=== PATIENT | female | born 1995 | race Two or more races ===

== ENCOUNTER 2018-05-19 13:43 | Emergency (ER) | payer OTHER ==
[2018-05-19 14:07] VITALS: BP 95/49; PULSE 102; TEMP 98.2; BMI 16.9
--- NOTE | 2018-05-19 14:27 | PDOC ---
History of Present Illness - General Chief Complaint: Nausea/Vomiting Stated Complaint: VOMITING Time Seen by Provider: 05/19/18 14:25 History Source: Patient Exam Limitations: No Limitations - History of Present Illness Initial Comments: Pt is a 23 yo F, with no significant PMH, who is presenting with complaints of 9 -10 episodes of NBNB vomiting since she woke up this morning feeling nauseous. Pt admits to unprotected intercourse a few days before her LMP (05/10), which was normal for her in duration and bleeding. It is associated with myalgias, particularly lower cramping back pain. She admits to a mild burning in her throat, only after vomiting. Pt denies any recent travel or sick contacts and has been feeling otherwise well up to this point. There are no exacerbating or alleviating factors of the nausea/vomiting. Pt has not been able to tolerate PO food or fluid intake since vomiting started. Pt denies any fevers/chills, headache, rash, vision changes, chest pain, palpitations, SOB, abdominal pain, urinary symptoms, vaginal bleeding or discharge, diarrhea/constipation, or leg swelling. Pt admits to drinking ~2 glasses of wine last night for the holidays, with occasional social drinking. Pt denies any cigarette or drug use. Pt denies any recent travel or sick contacts. Pt home for the holidays from [place], no recent hiking or tick bites that she is aware of. 05/19/18 14:59 Past History - Travel Traveled outside of the country in the last 30 days: No Close contact w/someone who was outside of country & ill: No - Past Medical History Allergies/Adverse Reactions: Allergies Allergy/AdvReac Type Severity Reaction Status Date / Time No Known Allergies Allergy Verified 05/19/18 14:01 Home Medications: Ambulatory Orders NK [No Known Home Medication] 05/19/18 Diabetes: No GI Disorders: Yes ("irritated stomach lining") HTN: No Hypercholesterolemia: No - Surgical History Abdominal Surgery: No Cholecystectomy: No GI Surgery: No - Family Disease History Family Disease History: Other: Grandparents (none), Father (none), Mother (none) - Reproductive History LMP comment: 05/10/2018 LMP Normal: Yes Is Patient Now?: No (unknown) - Suicide/Smoking/Psychosocial Hx Smoking History: Never smoked Review of Systems - Review of Systems Able to Perform ROS?: Yes Is the patient limited Z[place]ian proficient: No Constitutional: Yes: Weight Stable. No: Chills, Diaphoresis, Fever, Loss of Appetite, Weakness HEENTM: No: Blurred Vision, Recent change in vision, Nose Congestion, Hearing Loss, Throat Pain, Throat Swelling, Difficulty Swallowing Respiratory: No: Cough, Orthopnea, Shortness of Breath Cardiac (ROS): No: Chest Pain, Edema, Irregular Heart Rate, Lightheadedness, Palpitations, Syncope, Chest Tightness ABD/GI: Yes: Nausea, Poor Appetite, Poor Fluid Intake (unable to tolerate PO intake since vomiting started.), Vomiting. No: Blood Streaked Bowels, Constipated, Diarrhea, Abdominal cramping : No: Burning, Dysuria, Discharge, Frequency, Flank Pain, Hematuria, Pain, Urgency Musculoskeletal: Yes: Back Pain (mild "back cramping"). No: Joint Pain, Joint Swelling, Muscle Pain, Muscle Weakness, Neck Pain (no neck pain or stiffness) Integumentary: No: Rash Neurological: No: Headache, Seizure, Unsteady Gait, Ataxia, Dizziness Psychiatric: No: Sleep Pattern Change, Change in Appetite Endocrine: No: Increased Urine, Change in Weight Hematologic/Lymphatic: No: Anemia, Blood Clots, Easy Bleeding, Easy Bruising All Other Systems: Reviewed and Negative *Physical Exam - Vital Signs Last Vital Signs Temp Pulse Resp BP Pulse Ox 98.2 F 102 H 18 95/49 L 100 05/19/18 14:03 05/19/18 14:03 05/19/18 14:03 05/19/18 14:03 05/19/18 14:03 - Physical Exam General Appearance: Yes: Nourished, Appropriately Dressed, Thin. No: Apparent Distress (pt sitting up comfortably, can answer all questions appropriately) HEENT: positive: EOMI, BEKAH, Normal ENT Inspection, Normal Voice, Symmetrical, TMs Normal, Pharynx Normal, Hearing Grossly Normal. negative: Scleral Icterus ( R), Scleral Icterus (L), Muffled/Hoarse voice, Pharyngeal Erythema, Tonsillar Exudate, Tonsillar Erythema, Nasal Congestion, Rhinorrhea, Sinus Tenderness, TM Bulging, TM Dull, TM Erythema, Excessive drooling Neck: positive: Trachea midline, Normal Thyroid, Supple. negative: Tender, Rigid, Stridor, Lymphadenopathy (R), Lymphadenopathy (L), Rigidity Respiratory/Chest: positive: Lungs Clear, Normal Breath Sounds. negative: Chest Tender, Respiratory Distress, Accessory Muscle Use, Crackles, Stridor, Wheezing Cardiovascular: positive: Regular Rhythm, S1, S2, Tachycardia. negative: Regular Rate, Edema, JVD, Murmur Vascular Pulses: Carotid (R): 4+, Carotid (L): 4+ Gastrointestinal/Abdominal: positive: Normal Bowel Sounds, Flat, Soft. negative : Tender, Organomegaly, Pulsatile Mass, Distended, Guarding, Rebound Rectal Exam: positive: deferred Lymphatic: negative: Adenopathy, Tenderness Musculoskeletal: positive: Normal Inspection. negative: CVA Tenderness, Vertebral Tenderness Extremity: positive: Normal Capillary Refill, Normal Inspection, Normal Range of Motion, Pelvis Stable. negative: Tender, Pedal Edema Integumentary: positive: Normal Color, Dry, Warm. 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 Licona. Pt presenting with complaints of 9-10 episodes of NBNB vomiting since she woke up this morning feeling nauseous. Pt admits to unprotected intercourse a few days before her LMP (05/10), which was normal for her in duration and bleeding. It is associated with myalgias, particularly lower cramping back pain. She admits to a mild burning in her throat, only after vomiting. Pt denies any recent travel or sick contacts and has been feeling otherwise well up to this point. There are no exacerbating or alleviating factors of the nausea/vomiting. Pt denies any fevers/chills, headache, vision changes, chest pain, palpitations, SOB, abdominal pain, urinary symptoms, vaginal bleeding or discharge, diarrhea/ constipation, or leg swelling. PE showed mild tachycardia (HR 102), mild hypotension (95/49, no baseline to compare), pt appears mildly dry (decreased skin turgor in hands). Clear oropharyngeal membranes, no tonsillar swelling/exudates. No abdominal tenderness , rebound or guarding. Heart and lung sounds clear. No CVA tenderness. Considering viral enteritis vs vs influenza. Minimal suspicion for abdominal pathology considering normal exam. Will monitor hypotension as pt receives fluids, likely hypovolemic from vomiting. Ordered work-up including CBC, CMP, serum beta-hcg, UA, urine culture. Provided 4 mg IV zofran and 1 L NS for improvement of dehydration and nausea/ vomiting. Will continue to reassess pt and monitor for symptomatic improvement. 05/19/18 14:39 CBC: WBC 17.4, 94.8% neutrophils, H/H 13.0/37.1; likely hemoconcentration with infection (no baseline H/H to compare to). Influenza negative UA: 2+ protein, 2+ ketones, 3+ blood; negative leuk esterase, 3 WBC, 5 RBC 05/19/18 15:36 Pt has received ~.5 L NS, pt states feeling better. WBC noted. Will have pt attempt PO intake before leaving the department. Repeat abdominal exam shows no abdominal tenderness, rebound, or guarding. 05/19/18 15:45 CMP generally WNL (BUN 20, likely dehydrated) Pt states feeling much better after fluids. Advised pt to continue with mild foods and plenty of fluids until she is feeling better. Advised pt to find PCP in [place], and referred pt to [facility] if she can be seen this weekend. Considering benign exam and pt improvement, pt can be discharged to home with follow-up. Pt advised to follow-up with PCP in 1-2 days. Strict return precautions provided with pt understanding. 05/19/18 16:52 *DC/Admit/Observation/Transfer Diagnosis at time of Disposition: Nausea and vomiting Qualifiers: Vomiting type: unspecified Vomiting Intractability: intractable Qualified Code( s): R11.2 - Nausea with vomiting, unspecified - Discharge Dispostion Disposition: HOME Condition at time of disposition: Improved Decision to Admit order: No - Referrals Referrals: [facility] [place] [facility] [place] [Provider Group] - Patient Instructions Printed Discharge Instructions: DI for Vomiting -- Adult Additional Instructions: You were seen in the ER today for nausea and vomiting. The results of your labs and imaging today showed a likely infection, but you improved with IV fluids and nausea medication and you were able to tolerate fluid intake in the department. Please follow-up with your primary care doctor within 1-2 days to discuss your visit and make sure your symptoms have improved. Please return to the ER if you have any worsening/development of abdominal pain, blood in your vomit or stool, development of fevers or chills, loss of consciousness, inability to tolerate food or fluids, or any other concerns. - Post Discharge Activity
[2018-05-19] MEDS ORDERED: SODIUM CHLORIDE 1,000 ML IV STA (14:37)
[2018-05-19] MEDS ORDERED: ONDANSETRON 4 MG/2 ML VIAL IVPUSH ONE (14:37)
--- NOTE | 2018-05-19 14:37 | PDOC ---
Attending Attestation - Resident Resident Name: Delaney Bernard - ED Attending Attestation I have performed the following: I have examined & evaluated the patient, The case was reviewed & discussed with the resident, I agree w/resident's findings & plan, Exceptions are as noted - HPI HPI: 05/19/18 14:46 23y F no pmhx presents with 9-10 episodes of nbnb vomiting. woke up with same, endorses burning in her throat after vomiting. pt endorses mild lower back aching. Pt notes brief episode of sharp abd pain prior to vomiting but pain resolves after fomiting. denies any fever?chills, diarhrea, dysuria, frequency. vag discharge, vag bleeding. no known sick contacts. family was at holiday dinner lsat night and as far as she knows everyone else was fine. no other travel. +LMP in 05/10, +unprotected sex GENERAL: The patient is awake, alert, and fully oriented, Nontoxic - in no acute distress. HEAD: Normocephalic, atraumatic. EYES: extraocular movements intact, sclera anicteric, conjunctiva clear. ENT: Normal voice, dry mucous membranes. NECK: Normal range of motion, supple LUNGS: Breath sounds equal, clear to auscultation bilaterally. No wheezes, no rhonchi, no rales. HEART: Regular rate and rhythm, normal S1 and S2 without murmur, rub or gallop. ABDOMEN: Soft, nontender,. No guarding, no rebound. No CVA tenderness BACK: No focal midline tenderness, no CVA tenderness, no fluctuance, erythema, induration EXTREMITIES: Normal range of motion, no edema. No clubbing or cyanosis. No cords, erythema, or tenderness. NEUROLOGICAL: No facial assymetry, Normal speech, PSYCH: Normal mood, normal affect. SKIN: Warm, Dry, normal turgor, suspect early gastroenteritis vs , will ck lbs will treat sx with zofran, fluids will ck UA, hcg will erassess - Physicial Exam PE: 05/19/18 16:59 see above - Medical Decision Making 05/19/18 16:58 labs rviewed noted for leukocotysis possible contractionary BUN elev UA suggestive of dehydration/starvation (+ketonuria) pt has not eaten/drank anything since yesterday abd reassessed multiple times and is soft nontender pt PO challenged, tolerated oral intake will dc with pmd fu returnp recautions were discussed
[2018-05-19] MEDS ORDERED: ONDANSETRON 4 MG/2 ML VIAL ONE (14:45)
[2018-05-19 15:16] LABS: BASO % 0.1 % (0-2.0); HEMATOCRIT 37.1 % (32.4-45.2); LYMPH % 2.5 % (8-40); MCH 32.6 pg (25.7-33.7); MCHC 34.9 g/dl (32.0-36.0); MEAN CELL VOLUME 93.2 fl (80-96); MEAN PLT VOLUME 8.2 fl (7.5-11.1); MONO % 2.6 % (3.8-10.2); NEUT % 94.8 % (42.8-82.8); PLATELET COUNT 255 K/MM3 (134-434); RBC 3.98 M/mm3 (3.60-5.2); RDW 12.5 % (11.6-15.6); WHITE BLOOD COUNT 17.4 K/mm3 (4.0-10.0)
[2018-05-19 15:17] LABS: URINE APPEARANCE SLCLOUDY; URINE BILIRUBIN NEGATIVE (<2.0 mg/dL); URINE COLOR YELLOW; URINE GLUCOSE (UA) NEGATIVE (NEGATIVE); URINE KETONE 2+ (NEGATIVE); URINE LEUK ESTERASE NEGATIVE (NEGATIVE); URINE NITRITE NEGATIVE (NEGATIVE); URINE PROTEIN 2+ (NEGATIVE); URINE UROBILINOGEN NEGATIVE mg/dL (0.2-1.0)
[2018-05-19 15:25] LABS: EPI CELLS FEW /HPF (FEW); URINE MUCUS RARE
[2018-05-19 16:00] LABS: ALBUMIN 4.5 g/dl (3.4-5.0); ALK PHOS 44 U/L (45-117); ANION GAP 12 MMOL/L (8-16); BILIRUBIN,TOTAL 1.4 mg/dL (0.2-1); BLOOD UREA NITROGEN 20 mg/dL (7-18); CALCIUM 9.1 mg/dL (8.5-10.1); CHLORIDE 108 mmol/L (98-107); CO2 22 mmol/L (21-32); CREATININE 0.8 mg/dL (0.55-1.3); GLUCOSE,RANDOM 76 mg/dL (74-106); MAGNESIUM 2.1 mg/dL (1.8-2.4); POTASSIUM 4.1 mmol/L (3.5-5.1); SGOT/AST 59 U/L (15-37); SGPT/ALT 59 U/L (13-61); SODIUM 141 mmol/L (136-145); TOT PROT 7.8 g/dl (6.4-8.2)
[2018-05-19] MEDS ORDERED: ACETAMINOPHEN 325 MG TABLET (FP) PO ONE (16:47)
[2018-05-19 18:20] LABS: ANISOCYTOSIS 0; MACROCYTOSIS 0; PLATELET ESTIMATE NORMAL
== END 2018-05-19 17:20 | disposition home or self-care (01) ==
LOC: JER 13:43
PROC: 3E033GC Introduction of Other Therapeutic Substance into Peripheral Vein, Percutaneous Approach (ICD-10-PCS; principal; 2018-05-19)
PROC: 3E0337Z Introduction of Electrolytic and Water Balance Substance into Peripheral Vein, Percutaneous Approach (ICD-10-PCS; 2018-05-19)
DX: R11.2 Nausea with vomiting, unspecified (principal)
CPT/HCPCS: 36415; 80053; 81003; 81015; 83735; 84702; 85025; 87086; 87804; 99283-25; J7030

== ENCOUNTER 2020-05-11 22:16 | Emergency (ER) | payer OTHER ==
[2020-05-11 22:36] VITALS: TEMP 97.8; BMI 16.9
[2020-05-11] MEDS ORDERED: ONDANSETRON 4 MG/2 ML VIAL IVPUSH ONE (22:59)
[2020-05-11] MEDS ORDERED: LACTATED RINGERS SOLUTION 1000 ML INFUS.BAG IV ONE (22:59)
[2020-05-11 23:07] LABS: BASO % 0.6 % (0-2.0); EOS % 1.4 % (0-4.5); HEMATOCRIT 38.3 % (32.4-45.2); HEMOGLOBIN 12.7 GM/dL (10.7-15.3); LYMPH % 18.2 % (8-40); MCH 32.2 pg (25.7-33.7); MCHC 33.2 g/dl (32.0-36.0); MEAN PLT VOLUME 8.9 fl (7.5-11.1); MONO % 3.8 % (3.8-10.2); PLATELET COUNT 214 K/MM3 (134-434); RBC 3.95 M/mm3 (3.60-5.2); RDW 12.8 % (11.6-15.6); WHITE BLOOD COUNT 7.6 K/mm3 (4.0-10.0)
[2020-05-11] MEDS ORDERED: ACETAMINOPHEN 1000 MG/100 ML VIAL (NON FORMULARY) IVPB ONE (23:10)
[2020-05-11] MEDS ORDERED: ACETAMINOPHEN INJECTION 100 ML IVPB ONE (23:12)
[2020-05-11 23:28] LABS: POTASSIUM 3.8 mmol/L (3.5-5.1)
[2020-05-11 23:30] LABS: ALBUMIN 4.1 g/dl (3.4-5.0); BLOOD UREA NITROGEN 11.4 mg/dL (7-18); CALCIUM 8.8 mg/dL (8.5-10.1)
[2020-05-11 23:35] LABS: BILIRUBIN,TOTAL 1.9 mg/dL (0.2-1); TOT PROT 7.3 g/dl (6.4-8.2)
[2020-05-12 00:19] LABS: EPI CELLS >36 /uL (0-25.1); HYALINE CASTS 4 /uL (0-3.1); PH,URINE 5.5 (5.0-8.0); URINE APPEARANCE CLEAR; URINE BACTERIA 508 /uL (0-1359); URINE BILIRUBIN NEGATIVE (NEGATIVE); URINE COLOR YELLOW; URINE GLUCOSE (UA) NEGATIVE (NEGATIVE); URINE KETONE 1+ (NEGATIVE); URINE LEUK ESTERASE NEGATIVE (NEGATIVE); URINE NITRITE NEGATIVE (NEGATIVE); URINE PROTEIN NEGATIVE (NEGATIVE); URINE RBC 9 /uL (0-23.9); URINE WBC 22 /uL (0-25.8)
[2020-05-12 00:25] VITALS: BP 89/52; PULSE 60
== END 2020-05-12 01:03 | disposition home or self-care (01) ==
LOC: JER 22:16
PROC: 3E0333Z Introduction of Anti-inflammatory into Peripheral Vein, Percutaneous Approach (ICD-10-PCS; principal; 2020-05-11)
PROC: 3E033GC Introduction of Other Therapeutic Substance into Peripheral Vein, Percutaneous Approach (ICD-10-PCS; 2020-05-11)
DX: R11.10 Vomiting, unspecified (principal); B34.9 Viral infection, unspecified
CPT/HCPCS: 36415; 71046-TC-FY; 80053; 81003; 84703; 85025; 87086; 87491; 87591; 99284-25; C9803; J0131; U0003

== ENCOUNTER 2020-09-03 10:40 | Day surgery (SDC) | payer OTHER ==
[2020-09-01 13:04] VITALS: BMI 16.5
[2020-09-03] MEDS ORDERED: PROPOFOL 20 ML ONE ×2 (11:52)
[2020-09-03] MEDS ORDERED: LIDOCAINE HCL/PF 2% SDV 5ML VIAL ONE (11:52)
[2020-09-03 12:17] VITALS: TEMP 97.4
[2020-09-03 12:36] VITALS: BP 99/69; PULSE 70
== END 2020-09-03 12:15 | disposition home or self-care (01) ==
LOC: FASU-ENDO 10:40
PROVIDERS: ATTEND Internal Medicine Gastroenterology
PROC: 0DB78ZX Excision of Stomach, Pylorus, Via Natural or Artificial Opening Endoscopic, Diagnostic (ICD-10-PCS; 2020-09-03)
PROC: 0DB48ZX Excision of Esophagogastric Junction, Via Natural or Artificial Opening Endoscopic, Diagnostic (ICD-10-PCS; 2020-09-03)
PROC: 0DB98ZX Excision of Duodenum, Via Natural or Artificial Opening Endoscopic, Diagnostic (ICD-10-PCS; principal; 2020-09-03 11:50)
DX: K29.50 Unspecified chronic gastritis without bleeding (principal)
CPT/HCPCS: 84703; 88305-TC; 88342-TC

== ENCOUNTER 2021-01-25 13:14 | Emergency (ER) | payer OTHER ==
[2021-01-25 13:33] VITALS: TEMP 98.7; BMI 16.9
[2021-01-25] MEDS ORDERED: FAMOTIDINE 20 MG/50 ML IVPB 20 MG/50 ML MG IVPB ONE ×2 (14:00→14:08)
[2021-01-25] MEDS ORDERED: LACTATED RINGERS SOLUTION 1000 ML INFUS.BAG IV ONE (14:01)
[2021-01-25] MEDS ORDERED: METOCLOPRAMIDE HCL INJECTION 10 MG/2 ML VIAL IVPB ONE (14:04)
[2021-01-25] MEDS ORDERED: METOCLOPRAMIDE HCL INJECTION 10 MG/2 ML VIAL ONE (14:07)
[2021-01-25 14:14] LABS: BASO % 0.3 % (0-2.0); EOS % 0.5 % (0-4.5); HEMATOCRIT 34.4 % (32.4-45.2); HEMOGLOBIN 11.9 GM/dL (10.7-15.3); LYMPH % 9.1 % (8-40); MCHC 34.5 g/dl (32.0-36.0); MEAN CELL VOLUME 95.5 fl (80-96); MEAN PLT VOLUME 8.1 fl (7.5-11.1); MONO % 4.7 % (3.8-10.2); NEUT % 85.4 % (42.8-82.8); PLATELET COUNT 243 10^3/uL (134-434); RDW 13.2 % (11.6-15.6); WHITE BLOOD COUNT 9.9 K/mm3 (4.0-10.0)
[2021-01-25 14:18] LABS: EPI CELLS 23 /uL (0-25.1); HYALINE CASTS 1 /uL (0-3.1); PH,URINE 6.5 (5.0-8.0); URINE APPEARANCE CLEAR; URINE BACTERIA 287 /uL (0-1359); URINE BILIRUBIN NEGATIVE (NEGATIVE); URINE COLOR YELLOW; URINE GLUCOSE (UA) NEGATIVE (NEGATIVE); URINE KETONE TRACE (NEGATIVE); URINE LEUK ESTERASE NEGATIVE (NEGATIVE); URINE NITRITE NEGATIVE (NEGATIVE); URINE PROTEIN NEGATIVE (NEGATIVE); URINE RBC 124 /uL (0-23.9); URINE WBC 12 /uL (0-25.8)
[2021-01-25 14:19] LABS: HCG,QUALITATIVE URINE Negative
[2021-01-25 14:42] LABS: BLOOD UREA NITROGEN 7.6 mg/dL (7-18); CALCIUM 8.5 mg/dL (8.5-10.1)
[2021-01-25] MEDS ORDERED: SODIUM CHLORIDE 1,000 ML IV STA (14:43)
[2021-01-25 14:45] LABS: CREATININE 0.6 mg/dL (0.55-1.3)
[2021-01-25 14:47] LABS: TOT PROT 7.3 g/dl (6.4-8.2)
[2021-01-25 14:51] LABS: BILIRUBIN,TOTAL 1.2 mg/dL (0.2-1)
[2021-01-25 15:37] VITALS: BP 90/56; PULSE 78
== END 2021-01-25 15:49 | disposition home or self-care (01) ==
LOC: JER 13:14
PROC: 3E033GC Introduction of Other Therapeutic Substance into Peripheral Vein, Percutaneous Approach (ICD-10-PCS; principal; 2021-01-25)
PROC: 3E0337Z Introduction of Electrolytic and Water Balance Substance into Peripheral Vein, Percutaneous Approach (ICD-10-PCS; principal; 2021-01-25)
DX: K29.00 Acute gastritis without bleeding (principal)
CPT/HCPCS: 36415; 80053; 81003; 83690; 84703; 85025; 87086; 99284-25

== ENCOUNTER 2023-02-12 10:55 | Emergency (ER) | payer OTHER ==
[2023-02-12 11:00] VITALS: BMI 17.7
[2023-02-12 12:34] LABS: EPI CELLS 11 /uL (0-25.1); HYALINE CASTS 0 /uL (0-3.1); URINE APPEARANCE CLEAR; URINE BACTERIA 269 /uL (0-1359); URINE BILIRUBIN NEGATIVE (NEGATIVE); URINE COLOR YELLOW; URINE GLUCOSE (UA) NEGATIVE (NEGATIVE); URINE KETONE 3+ (NEGATIVE); URINE LEUK ESTERASE NEGATIVE (NEGATIVE); URINE NITRITE NEGATIVE (NEGATIVE); URINE PROTEIN TRACE (NEGATIVE); URINE RBC 36 /uL (0-23.9); URINE UROBILINOGEN 0.2 mg/dL (0.2-1.0); URINE WBC 8 /uL (0-25.8)
[2023-02-12] MEDS ORDERED: SODIUM CHLORIDE 0.9% 500 ML INFUS.BAG IV ONE (12:41)
[2023-02-12] MEDS ORDERED: METOCLOPRAMIDE HCL INJECTION 10 MG/2 ML VIAL IVPB ONE (12:42)
[2023-02-12] MEDS ORDERED: FAMOTIDINE 20 MG/50 ML IVPB 20 MG/50 ML MG IVPB ONE ×2 (12:42→12:50)
[2023-02-12] MEDS ORDERED: METOCLOPRAMIDE HCL INJECTION 10 MG/2 ML VIAL ONE (12:50)
[2023-02-12 13:23] LABS: HEMATOCRIT 38.4 % (32.4-45.2); HEMOGLOBIN 12.8 GM/dL (10.7-15.3); MCH 31.3 pg (25.7-33.7); MCHC 33.4 g/dl (32.0-36.0); MEAN CELL VOLUME 93.5 fl (80-96); MEAN PLT VOLUME 8.4 fl (7.5-11.1); PLATELET COUNT 220 10^3/uL (134-434); RBC 4.11 M/mm3 (3.60-5.2); RDW 12.6 % (11.6-15.6); WHITE BLOOD COUNT 11.3 K/mm3 (4.0-10.0)
[2023-02-12 13:47] LABS: POTASSIUM 5.3 mmol/L (3.5-5.1)
[2023-02-12 13:49] LABS: CALCIUM 9.5 mg/dL (8.5-10.1)
[2023-02-12 13:50] LABS: ALBUMIN 4.4 g/dl (3.4-5.0); BLOOD UREA NITROGEN 16.4 mg/dL (7-18)
[2023-02-12 13:52] LABS: CREATININE 0.7 mg/dL (0.55-1.3)
[2023-02-12 13:54] LABS: BILIRUBIN,TOTAL 1.2 mg/dL (0.2-1); TOT PROT 7.8 g/dl (6.4-8.2)
[2023-02-12 14:23] LABS: ANISOCYTOSIS 0; HELMET CELLS 0; HOWELL-JOLLY BODIES 0; MACROCYTOSIS 0; OVALOCYTE 0; ROULEAU 0; SICKELED CELLS 0; TARGET CELLS 0; TEAR DROP CELLS 0; TOXIC GRANULATION 0
[2023-02-12 14:58] VITALS: BP 105/63; PULSE 109; RESP 16; TEMP 98.5
== END 2023-02-12 16:30 | disposition home or self-care (01) ==
LOC: JER 10:55
PROC: 3E033GC Introduction of Other Therapeutic Substance into Peripheral Vein, Percutaneous Approach (ICD-10-PCS; principal; 2023-02-12)
PROC: 3E033GC Introduction of Other Therapeutic Substance into Peripheral Vein, Percutaneous Approach (ICD-10-PCS; 2023-02-12)
DX: R11.2 Nausea with vomiting, unspecified (principal); R10.13 Epigastric pain; K29.70 Gastritis, unspecified, without bleeding
CPT/HCPCS: 36415; 80053; 81003; 83690; 84703; 85025; 87086; 99284-25